=== PATIENT | female | born 1965 | race Caucasian/White ===

== ENCOUNTER 2020-02-13 09:34 | Outpatient (CLI) | payer BC, SELFPAY ==
[2020-02-13 10:01] LABS: Basophils % 0.4 %; Eosinophils # 0.1 10^3/uL (0.0-0.8); Eosinophils % 0.7 %; Hemoglobin 13.2 g/dL (11.5-15.3); Lymphocytes # 2.2 10^3/uL (0.8-4.8); Lymphocytes % 26.1 %; Mean Corpuscular HGB Conc 33.8 g/dL (30.0-36.0); Mean Corpuscular Hemoglobin 32.3 pg (28.0-34.0); Mean Corpuscular Volume 95.4 fL (81-99); Mean Platelet Volume 10.8 fL (7.4-10.4); Monocytes # 0.7 10^3/uL (0.2-0.9); Neutrophils # 5.5 10^3/uL (1.8-7.7); Neutrophils % 64.6 %; Nucleated Red Blood Cells % 0 %; Platelet Count 231 10^3/cmm (130-400); Red Blood Count 4.09 10^6/uL (4.1-5.3); Red Cell Distribution Width 11.8 % (12.1-15.1); White Blood Count 8.5 10^3/uL (4.0-10.0)
[2020-02-13 10:18] LABS: Alanine Aminotransferase 47 U/L (0-33); Albumin Level 4.4 g/dL (3.5-5.2); Alkaline Phosphatase 335 IU/L (35-105); Anion Gap 16.1 (5-19); Aspartate Amino Transferase 27 U/L (0-32); Blood Urea Nitrogen 8 mg/dL (6-20); Calcium 9.7 mg/dL (8.5-10.5); Carbon Dioxide 27 mmol/L (22-29); Chloride 105 mmol/L (98-107); Globulin 2.2 g/dL (1.3-4.6); Glucose 101 mg/dL (65-115); Osmolality Calculated 296 mOsm/kg (285-295); Potassium 3.1 mmol/L (3.5-5.1); Sodium 145 mmol/L (136-145); Total Bilirubin 0.5 mg/dL (0.15-1.2); Total Protein 6.6 g/dL (6.6-8.7)
--- NOTE | 2020-02-13 10:35 | CT_ITS ---
WS: [id number] CT ABDOMEN AND PELVIS NONCONTRAST HISTORY: RLQ PAIN Unable to start IV for IV contrast. TECHNIQUE: Imaging performed through the abdomen and pelvis. Coronal and sagittal reformats are submi tted. All CT scans at [facility] use at least one of these dose optimization techniques: automated exposure control; mA and/or kV adjustment per patient size (includes targeted exams where d ose is matched to clinical indication); or iterative reconstruction. DLP: 436.91 mGy.cm COMPARISON: 12/27/2015 Lower thorax: Emphysematous changes at the lung bases. Mild cardiomegaly. No hiatal hernia. Liver: Mildly enlarged with hepatic steatosis. Rosalinda's lobe. Gallbladder: Prior cholecystectomy. Pancreas: Normal. Spleen: Normal. Adrenal glands: Normal. Right kidney: Normal size with no stones, masses or atrophy. Left kidney: Extrarenal pelvis. No renal obstruction or calcifications. Abdominal aorta and IVC are unremarkable. No free fluid, intraperitoneal air or significant lymphadenopathy. GI tract: The appendix is visualized and is redundant. No wall thickening and there are still foci of air within the appendix. Mild constipation. No evidence for diverticulitis or colitis. Abdominal wall: Intact. Pelvis: Well-distended urinary bladder. Osseous structures: Unremarkable. CT/CT abdomen pelvis wo con [id number] IMPRESSION: 1. No evidence for appendicitis. 2. Status post cholecystectomy. 3. Hepatomegaly with Rosalinda's lobe and hepatic steatosis. 4. No renal stone or obstruction. 5. No free fluid.
== END 2020-02-13 09:35 | disposition home or self-care (01) ==
PROVIDERS: Family Provider Family Medicine; PCP Family Medicine; Visit Provider Nurse Practitioner Family
DX: R10.31 Right lower quadrant pain (principal); R16.0 Hepatomegaly, not elsewhere classified; Q44.7 Other congenital malformations of liver; K76.0 Fatty (change of) liver, not elsewhere classified
CPT/HCPCS: 36415; 74176; 80053; 85025

== ENCOUNTER 2020-02-20 07:52 | Outpatient (CLI) | payer BC, SELFPAY ==
--- NOTE | 2020-02-20 08:04 | MR_ITS ---
WS: [id number] MRCP (MAGNETIC RESONANCE CHOLANGIOPANCREATOGRAPHY) HISTORY: ENLARGED LIVER, ELEVATED ALKALINE GAMMA GLUTAMYL TRANSFERASE COMPARISON: 02/13/2020 TECHNIQUE: Multiple sequences are performed to evaluate the intra and extrahepatic ducts. Status post cholecystectomy. Common bile duct is normal size. Common bile duct measures [address] The cystic duct is also normal. No intrahepatic duct dilatation. Portal vein is patent. Liver is moderately enlarged. The liver is elongated with a thin Rosalinda's lobe extending towards the iliac cr est. No hepatic mass. There is no ascites within the abdomen. The adrenal glands, spleen and kidneys are negative. Chronic emphysematous changes with scarring noted in the RIGHT lower lung field. MR/MR MRCP [id number] IMPRESSION: 1. Prior cholecystectomy. 2. Normal common bile duct. 3. Elongated liver with Rosalinda's lobe. 4. No ascites.
== END 2020-02-20 07:53 | disposition home or self-care (01) ==
LOC: RADWPI 07:59
PROVIDERS: Family Provider Family Medicine; PCP Family Medicine; Visit Provider Nurse Practitioner Family
DX: R16.0 Hepatomegaly, not elsewhere classified (principal); R74.8 Abnormal levels of other serum enzymes; R74.0 Nonspecific elevation of levels of transaminase and lactic acid dehydrogenase [LDH]; Q44.7 Other congenital malformations of liver
CPT/HCPCS: 74181

== ENCOUNTER 2020-04-16 14:37 | Outpatient (CLI) | payer BC, SELFPAY ==
--- NOTE | 2020-04-16 14:41 | MM_ITS ---
WS: [id number] BILATERAL DIGITAL SCREENING MAMMOGRAM WITH CAD CLINICAL INFORMATION: SCREENING HISTORY: Screening mammogram. No current complaints. COMPARISON: November 06, 2017 TECHNIQUE: Bilateral CC and MLO. FINDINGS: The breast are composed of extremely dense tissue, which can limit the detection of small underlying mass lesions. No suspicious focal mass, asymmetry, calcifications, or architectural distortion. No ev idence of malignancy. Benign punctate and lucent centered calcifications left breast. MM/[place] [id number] IMPRESSION: BI-RADS: 2-Benign FOLLOW UP: 1 Year Follow-up Recommend return to annual screening mammography.
== END 2020-04-16 14:38 | disposition home or self-care (01) ==
LOC: RADSHAW 14:40
PROVIDERS: PCP Family Medicine; Visit Provider Family Medicine
DX: Z12.31 Encounter for screening mammogram for malignant neoplasm of breast (principal)
CPT/HCPCS: 77067

== ENCOUNTER 2020-04-19 13:45 | Outpatient (CLI) | payer BC, SELFPAY ==
--- NOTE | 2020-04-19 13:53 | XR_ITS ---
WS: [id number] SCREENING DEXA SCAN [email or web address] CLINICAL INFORMATION: OSTEOPOROSIS COMPARISON: FINDINGS: The L1-L4 bone mineral density measures 0.808 g/cm2. This corresponds to a T score score of -3.1 and Z score of -1.9. Left femoral neck bone mineral density measures 0.815 g/cm2. This corresponds to a T score of -1.5 an d Z score of -0.5. Right femoral neck bone mineral density measures 0.841 g/cm2. This corresponds to a T score -1.3of an d Z score of -0.3. Mean femoral neck bone mineral density measures 0.828 g/cm2. This corresponds to a T score of -1.4 an d Z score of -0.4. XR/XR DEXA axial skeleton* [id number] IMPRESSION: Osteoporosis in the lumbar spine. Osteopenia in the femoral necks. Patient's FRAX calculated 10 year probability for major osteoporotic fracture i s 12.1 % and osteoporotic hip fracture is 3.0%. Bone mineral density lumbar spine has decreased -7.0% and -1.7% in the femoral necks since 2017
--- NOTE | 2020-04-19 13:53 | XR_ITS ---
WS: [id number] THORACIC SPINE TECHNIQUE: 3 views of the thoracic spine CLINICAL INFORMATION: MID BACK PAIN COMPARISON: None. FINDINGS: Mild thoracic curve convex right. Evidence of prior vertebroplasty changes in the upper thoracic spin e at T5 with methacrylate extending into the prevertebral soft tissues. Anterior wedging at T5. Mild chronic appearing appearing anterior wedging in the mid thoracic spine at T8, T9 and T10. Disc space narrowing at the cervical spine at C5-6 and C6-7 XR/XR thoracic spine 3V* [id number] IMPRESSION: 1. Mild thoracic curve convex right. No acute appearing compression fractures. 2. Prior vertebroplasty changes at T5. 3. Chronic appearing anterior wedging in the mid thoracic spine at T8, T9, and T10. 4. Disc space narrowing cervical spine at C5-C6 and C6-C7.
== END 2020-04-19 13:46 | disposition home or self-care (01) ==
PROVIDERS: Family Provider Family Medicine; PCP Family Medicine; Visit Provider Family Medicine
DX: M81.0 Age-related osteoporosis without current pathological fracture (principal); M54.89 Other dorsalgia; M48.54XA Collapsed vertebra, not elsewhere classified, thoracic region, initial encounter for fracture
CPT/HCPCS: 72072; 77080

== ENCOUNTER 2020-05-12 07:49 | Emergency (ER) | payer OTHER, SELFPAY ==
[2020-05-12 07:52] VITALS: BMI 19.7
[2020-05-12 07:56] VITALS: BP 187/101; PULSE 58; RESP 16; TEMP 36.5; O2SAT 100
--- NOTE | 2020-05-12 08:05 | W.ED.BACK ---
HPI - Back Pain/Injury General: Chief Complaint: Back Pain/Injury Stated Complaint: BACK PAIN POSS WC Time Seen by Provider: 05/12/20 07:54 History of Present Illness: HPI Narrative: Was at work today and picked up a case of energy drinks which was heavy and she felt pain to her low back that rating down the left side now. Does have a history of chronic back problems. MD elicited complaint: back pain Pertinent past history: prior back pain Onset (ago): minute(s) Timing: constant Severity: moderate Similar Symptoms Previously: Yes Quality: burning Location: lumbar spine Radiation: left upper leg Exacerbating factors: movement and walking Relieving factors: immobilization Context: while lifting and turning/twisting Associated symptoms: Reports no associated symptoms; Deny abdominal pain, chills, fever(s), nausea or vomiting Work related injury: Yes Review of Systems Const: Denies: fever(s), chills or body aches Eyes: Denies: change in vision or blurry vision ENMT: Denies: throat pain or nasal congestion Card: Denies: chest pain or dyspnea on exertion Resp: Denies: dyspnea, productive cough or non-productive cough GI: Denies: abdominal pain, nausea or vomiting Musc: Reports: back pain; Denies: extremity pain Skin/Breast: Denies: rash Neuro: Denies: headache(s) Psych: Denies: anxiety or depression Sg/Lymph: Denies: easy bruising PFSH ED PFSH: Medical History (Updated 05/12/20 @ 08:10 by DON Ruiz) 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 Surgical History (Updated 05/07/20 @ 11:11 by Niya Herrera APRN) History of breast biopsy History of delivery History of cholecystectomy History of lung surgery History of thyroidectomy History of tonsillectomy Hx of removal of ovary Family History Mother Alcoholism Lung cancer Father Alcoholism Throat cancer Brother Alcoholism Family/Other Thyroid disease Hypertension Hyperlipidemia Social History Smoking and tobacco status: current every day smoker Alcohol intake: current Alcohol intake frequency: holidays/special occasions only Household members: spouse and children Marital status: Current occupational status: employed 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 [employer] History of recent travel: No Physical Exam Const: COMMON NORMALS: no acute distress, average body habitus and patient oriented x3 HENMT: COMMON NORMALS: normocephalic HEAD & SCALP: normal to inspection and normocephalic FACE & SINUS: normal facial exam Eye: COMMON NORMALS: conjunctivae normal GENERAL EYE: appearance normal, both eyes and all related structures CONJUNCTIVA: Yes conjunctivae normal Neck/C-Spine: COMMON NORMALS: no JVD Chest: COMMONS NORMALS: normal inspection of the chest Resp: COMMON NORMALS: normal respiratory effort and clear to auscultation bilaterally AUSCULTATION: clear to auscultation bilaterally Cardio: COMMON NORMALS: no JVD, regular rate and regular rhythm RATE: regular rate RHYTHM: regular rhythm GI: COMMON NORMALS: Normal to inspection, nondistended, normoactive bowel sounds present Back/Pelvis: LUMBAR SPINE/LOWER BACK: Yes pain with ROM, No lumbar spinal tenderness, No paraspinal muscle spasm and Yes straight leg raise positive left Extremity: COMMON NORMALS: normal to inspection and full ROM Neuro: COMMON NORMALS: patient oriented x3 Course Vital Signs: Vital signs: Vital Signs Temperature 97.7 F 05/12/20 07:56 Pulse Rate 53 L 05/12/20 08:24 Respiratory Rate 17 05/12/20 08:24 Blood Pressure 177/104 05/12/20 08:24 Pulse Oximetry 99 05/12/20 08:24 Discharge Plan Discharge Patient Disposition: Home, Self-Care Clinical Impression: Lumbar radiculopathy Condition: Stable Prescriptions: New prednisone 10 mg tablet 10 mg PO DAILY Qty: 14 RF: 0 cyclobenzaprine 5 mg tablet 5 mg PO TID PRN (Reason: muscle spasm) Qty: 20 RF: 0 No Action cbd gummies ring PO RF: 0 levothyroxine 112 mcg capsule 112 mcg PO DAILY RF: 0 ropinirole 0.5 mg tablet 0.5 mg PO DAILY RF: 0 trazodone 150 mg tablet 150 mg PO DAILY RF: 0 hydroxyzine HCl 25 mg tablet 25 mg PO QID PRNRF: 0 triamcinolone acetonide 0.1 % cream 1 applic TOPICAL TID PRNRF: 0 losartan 25 mg tablet 25 mg PO DAILY RF: 0 atorvastatin 20 mg tablet 20 mg PO DAILY RF: 0 multivitamin Tablet 1 tab PO DAILY RF: 0 cholecalciferol (vitamin D3) 25 mcg (1,000 unit) capsule 25 mcg PO DAILY RF: 0 black elderberry capsule PO RF: 0 omega-3 fatty acids [Fish Oil Concentrate] 1,000 mg capsule 1,000 mg PO DAILY RF: 0 Otezla 30 mg tablet 30 mg PO BID RF: 0 Discharge Orders: Discharge Order (Routine); Ordered 05/12/20 Ordered By: Cornel Murphy Referrals: Olivia Hogan MD [Primary Care Provider] - Discharge Diet: Usual diet Discharge Activity: Limit activity as instructed Patient Instructions: Lumbar Radiculopathy (ED) Activity Restrictions/Additional Instructions: Follow-up with medical provider as directed. Take medications as prescribed. Return to the ER or your medical provider if condition worsens. Please read and understand discharge instructions. If any questions ask please. Follow-up work comp doc as directed. Apply ice to back as needed. Heavy lifting for next 4 weeks. Weight restrictions at 10 pounds x 4 weeks. Cannot stand longer than 15 minutes. Stand Alone Forms: Work/School Release Discharge Date/Time: 05/12/20 08:25 Coding Level of Care Code ED Optical Glass Inspector for Chg Fwd Exam Comprehensive
[2020-05-12] MEDS: methylPREDNISolone (DEPO) 80 MG/ML INJ 1 mL IM (08:11)
[2020-05-12 08:13] VITALS: BP 177/104; PULSE 46; RESP 16; O2SAT 99
[2020-05-12 08:24] VITALS: BP 177/104; PULSE 53; RESP 17; O2SAT 99
== END 2020-05-12 08:25 | disposition home or self-care (01) ==
PROVIDERS: Emergency Provider Nurse Practitioner Family; PCP Family Medicine
DX: M54.16 Radiculopathy, lumbar region (principal); F17.210 Nicotine dependence, cigarettes, uncomplicated
CPT/HCPCS: 12345; 96372; 99282; 99283; J1040

== ENCOUNTER 2020-05-24 07:48 | Outpatient (CLI) | payer BC, SELFPAY ==
--- NOTE | 2020-05-24 08:00 | XR_ITS ---
WS: [id number] LATERAL CERVICAL SPINE: 3 view. Lateral radiographs are performed in upright neutral, flexion and extension to the patient's toleranc e. HISTORY: Neck pain COMPARISON: None available. Straightening of the normal cervical lordosis. 2 mm anterolisthesis of C4. Mild disc space narrowing at C5-6 and C6-7 with endplate osteophytes. No fractures. With flexion the anterolisthesis of C4 minimally increases to 2.4 mm. Returns to normal alignment dur ing extension. XR/XR cervical spine fl/ex [id number] IMPRESSION: 1. Straightening of the normal cervical lordosis. 2. Minimal anterolisthesis of C4. Returns to normal alignment during extension . Very small mild instability. 3. Mild spondylosis from C5 to C7.
--- NOTE | 2020-05-24 08:45 | MR_ITS ---
WS: [id number] MRI THORACIC SPINE noncontrast. HISTORY: Thoracic and lumbar pain. LEFT upper extremity pain. COMPARISON: 03/01/2015 TECHNIQUE: Multiplanar sequences are performed in sagittal and axial planes. Stable T5 10 percent anterior compression fracture with vertebroplasty. Vertebroplasty cement is in t he anterior vertebral body and partially extruded and abuts the agnes and esophagus. Similar to the prior study. No additional fractures. No marrow signal abnormalities. Disc spaces are preserved. Sign al within the cord is normal. Conus tapers normally and ends at L1-2. T1-2: Normal. T2-3: Normal. T3-4: Normal. T4-5: Normal. T5-6: Normal. T6-7: Normal. T7-8: Normal. T8-9: Normal. T9-10: Normal. T10-11: Normal. T11-12: Normal. Paravertebral soft tissues are normal. MR/MR thoracic spin wo con* [id number] IMPRESSION: 1. Stable 10% anterior compression fracture of T5 with vertebroplasty. No inte rval change. 2. No acute fractures. No significant stenosis.
--- NOTE | 2020-05-24 09:30 | MR_ITS ---
WS: [id number] MRI CERVICAL SPINE HISTORY: M50.020 Cervical disc disorder with myelopathy, mid-cervi... COMPARISON: None available. Straightening of the normal cervical lordosis. Very slight reversal of C5 by less than 2 mm. No marro w edema or fracture. Signal within the cervical cord is normal. Fluidlike signal intensity in the central occipital region consistent with benign skull lesion stable since 2015. Craniocervical junction, C1 and C2 relationship, odontoid process and soft tissues are normal. C2-C3: Normal. C3-C4: Normal. C4-C5: Normal. C5-C6: Small central disc protrusion with near contact on the ventral thecal sac. Small osteophytic r idging. No significant stenosis. Very mild narrowing of the RIGHT foramen. C6-C7: Small central disc protrusion with vertebral body osteophytes. No significant stenosis. Very m ild bilateral foraminal narrowing. C7-T1: Normal. Paraspinal soft tissue are normal. MR/MR cervical spin wo con* [id number] IMPRESSION: 1. Straightening of the normal cervical lordosis. 2. Mild degenerative disc disease at C5-6 and C6-7. 3. Small central disc protrusion at C5-6 with near cord contact. No significan t stenosis. 4. Very mild RIGHT foraminal narrowing at C5-6 and bilaterally at C6-7 predomi nantly due to osteophytes.
== END 2020-05-24 07:49 | disposition home or self-care (01) ==
LOC: RADWPI 07:52
PROVIDERS: Family Provider Family Medicine; PCP Family Medicine; Visit Provider Licensed Practical Nurse
DX: M50.020 Cervical disc disorder with myelopathy, mid-cervical region, unspecified level (principal); M51.9 Unspecified thoracic, thoracolumbar and lumbosacral intervertebral disc disorder; M50.323 Other cervical disc degeneration at C6-C7 level; M50.222 Other cervical disc displacement at C5-C6 level; M25.78 Osteophyte, vertebrae; M48.54XA Collapsed vertebra, not elsewhere classified, thoracic region, initial encounter for fracture; X58.XXXA Exposure to other specified factors, initial encounter; M47.812 Spondylosis without myelopathy or radiculopathy, cervical region
CPT/HCPCS: 72040; 72141; 72146

== ENCOUNTER 2020-06-29 06:00 | Outpatient (RCR) | payer BC, SELFPAY | END 2020-07-28 23:59 | disposition home or self-care (01) | LOC: TPT 06:00 | PROVIDERS: Referring Provider Licensed Practical Nurse; Visit Provider Licensed Practical Nurse | DX: M50.020 Cervical disc disorder with myelopathy, mid-cervical region, unspecified level (principal); M51.9 Unspecified thoracic, thoracolumbar and lumbosacral intervertebral disc disorder | CPT/HCPCS: 97161 ==

== ENCOUNTER → 2020-07-01 14:32 | Outpatient (BNVA) | payer BC, SELFPAY | PROVIDERS: Family Provider Family Medicine; PCP Family Medicine; Referring Provider Nurse Practitioner Family; Visit Provider Internal Medicine | DX: M81.0 Age-related osteoporosis without current pathological fracture (principal); E03.9 Hypothyroidism, unspecified | CPT/HCPCS: 99204 ==

== ENCOUNTER → 2020-08-12 15:19 | Outpatient (BNVA) | payer BC, SELFPAY | PROVIDERS: Visit Provider Internal Medicine | DX: E03.9 Hypothyroidism, unspecified (principal); E83.42 Hypomagnesemia; E87.6 Hypokalemia; M81.0 Age-related osteoporosis without current pathological fracture | CPT/HCPCS: 99215 ==

== ENCOUNTER 2020-08-12 15:56 | Outpatient (CLI) | payer BC, SELFPAY ==
[2020-08-12 17:09] LABS: Free T4 Free Thyroxine 1.67 ng/dL (0.82-1.77); Phosphorus 3.5 mg/dL (2.5-4.5); Thyroid Stimulating Hormone 4.15 uIU/mL (0.27-4.20)
[2020-08-12 18:12] LABS: 25 Hydroxy Vitamin D 45 ng/mL (30-100)
== END 2020-08-12 15:57 | disposition home or self-care (01) ==
LOC: LAB 16:01
PROVIDERS: PCP Nurse Practitioner Family; Visit Provider Internal Medicine
DX: M81.0 Age-related osteoporosis without current pathological fracture (principal); E03.9 Hypothyroidism, unspecified
CPT/HCPCS: 36415; 82306; 82310; 83970; 84075; 84080; 84100; 84439; 84443

== ENCOUNTER 2021-08-22 08:28 | Outpatient (CLI) | payer OTHER, SELFPAY ==
--- NOTE | 2021-08-22 08:35 | XR_ITS ---
WS: [id number] Exam: XR ankle LT min 3V* [id number] Date/Time of Exam: 08/22/2021 8:45 AM Reason For Exam: LEFT ANKLE JOINT PAIN Findings: Multiple views of the ankle reveal no fracture or displacements of bone. No soft tissue swelling is present. There are no periosteal reactions noted. The talus and calcaneus are in adequate position. The joint space is smooth and equidistant. XR/XR ankle LT min 3V* [id number] IMPRESSION: Negative left ankle.
--- NOTE | 2021-08-22 08:35 | XR_ITS ---
WS: [id number] Exam: XR foot LT min 3V* [id number] Date/Time of Exam: 08/22/2021 8:45 AM Reason For Exam: LEFT FOOT JOINT PAIN Findings: The foot was examined in multiple views and reveals no fractures or displacements of bone. No bony a nomalies are noted. The bony elements are in adequate alignment. The joint spaces are smooth and eq uidistant. XR/XR foot LT min 3V* [id number] IMPRESSION: Negative left foot.
== END 2021-08-22 08:29 | disposition home or self-care (01) ==
PROVIDERS: PCP Nurse Practitioner Family; Visit Provider Nurse Practitioner Family
DX: M79.672 Pain in left foot (principal); M25.572 Pain in left ankle and joints of left foot
CPT/HCPCS: 73610; 73630

== ENCOUNTER 2021-08-22 10:03 | Outpatient (CLI) | payer OTHER, SELFPAY ==
--- NOTE | 2021-08-22 10:07 | MM_ITS ---
WS: [id number] BILATERAL DIGITAL DIAGNOSTIC MAMMOGRAM MAMMOGRAPHY WITH CAD CLINICAL INFORMATION: LUIS BREAST PAIN;DENSITY 6 OCLOCK BILATERALLY. LEFT BREAST LUMP. COMPARISON: April 16, 2020 and TECHNIQUE: Bilateral CC, MLO, and ML views. FINDINGS: The breasts are composed of heterogeneous fibroglandular density, which can limit the detection of sm all underlying mass lesions. Dystrophic calcifications bilaterally. Ovoid asymmetric density lower ou ter right breast measuring 8 mm. Ultrasound is pending. Palpable marker just inferior to the areola left breast. No definite underlying mammographic abnormal ities in this area. Ultrasound is pending. ULTRASOUND BREAST BILATERAL TECHNIQUE: Ultrasound bilateral breast focused area of concern. CLINICAL INFORMATION: LUIS BREAST PAIN;DENSITY 6 OCLOCK BILATERALLY FINDINGS: Ultrasound outer right breast demonstrates normal underlying dense parenchymal tissue. Incidental lym ph node at the 9:00 position measuring 1.2 x 1.1 cm with a fatty hilum. No suspicious abnormalities r ight breast. Ultrasound left breast 6:00 position near the areola. Mild ductal ectasia. No cystic or solid lesions . No lesions to target for biopsy. MM/[place] [id number] IMPRESSION: BI-RADS: 2-Benign FOLLOW UP: 1 Year Follow-up Recommend return to annual screening mammography.
== END 2021-08-22 10:04 | disposition home or self-care (01) ==
LOC: RADSHAW 10:06
PROVIDERS: PCP Nurse Practitioner Family; Visit Provider Nurse Practitioner Family
DX: N60.42 Mammary duct ectasia of left breast (principal); N64.4 Mastodynia
CPT/HCPCS: 76642; 77066

== ENCOUNTER → 2021-10-26 15:46 | Outpatient (BNVA) | payer OTHER, SELFPAY | PROVIDERS: PCP Nurse Practitioner Family; Visit Provider Obstetrics & Gynecology | DX: R10.31 Right lower quadrant pain (principal) | CPT/HCPCS: 76830 ==

== ENCOUNTER 2021-12-04 09:37 | Emergency (ER) | payer OTHER, SELFPAY ==
[2021-12-04] VITALS (8 sets, daily range): BP systolic 108–136; BP diastolic 66–85; PULSE 50–77; RESP 14–18; TEMP 36.8; O2SAT 92–95; BMI 24.5
--- NOTE | 2021-12-04 10:03 | CTR_ITS ---
PROCEDURE INFORMATION: Exam: CT Abdomen And Pelvis Without Contrast Exam date and time: 12/04/2021 10:03 AM Age: 56 years old Clinical indication: Other: Right flank pain; Prior surgery; Surgery date: 6+ months; Surgery type: Gb, ovarian TECHNIQUE: Imaging protocol: Computed tomography of the abdomen and pelvis without contrast. Total images: 216 Radiation optimization: All CT scans at this facility use at least one of these dose optimization techniques: automated exposure control; mA and/or kV adjustment per patient size (includes targeted exams where dose is matched to clinical indication); or iterative reconstruction. COMPARISON: MR MRCP [id number] 02/20/2020 8:04 AM RADIATION DOSE METRICS: Total DLP (mGy-cm): 987.13 FINDINGS: Lungs: Prominent interstitial and ground-glass opacities noted at the lung bases right greater than left felt to represent combination of scarring/fibrosis and edema, atelectasis, and or pneumonia. Liver: Normal. No mass. Gallbladder and bile ducts: Prior cholecystectomy noted. Pancreas: Normal. No ductal dilation. Spleen: Normal. No splenomegaly. Adrenal glands: Normal. No mass. Kidneys and ureters: Normal. No hydronephrosis. Stomach and bowel: Unremarkable. No obstruction. No mucosal thickening. Appendix: No evidence of appendicitis. Intraperitoneal space: Unremarkable. No free air. No significant fluid collection. Vasculature: Incidental phleboliths noted. Lymph nodes: Unremarkable. No enlarged lymph nodes. Urinary bladder: Unremarkable as visualized. Reproductive: Unremarkable as visualized. Bones/joints: Unremarkable. No acute fracture. Soft tissues: Unremarkable. CT/CT abdomen pelvis con [id number] IMPRESSION: 1. Prominent interstitial and ground-glass opacities noted at the lung bases right greater than left felt to represent combination of scarring/fibrosis and edema, atelectasis, and or pneumonia. 2. No acute intra-abdominal pathology.
--- NOTE | 2021-12-04 10:04 | W.ED.ABDPA2 ---
HPI - Abdominal Pain General: Chief Complaint: Abdominal Pain Stated Complaint: fever Time Seen by Provider: 12/04/21 09:53 History of Present Illness: 56-year-old female presents with right flank pain. This started 2 days ago. Describes it as achy. Does not radiate. States that she is previously had a cholecystectomy. Reports fever up to 103 at home. Denies any chest pain or shortness of breath. Denies any dysuria or pelvic discharge or lower abdominal pain. Denies nausea vomiting diarrhea or constipation. Review of Systems Narrative: - CONSTITUTIONAL: Denies weight loss, fever and chills. - HEENT: Denies changes in vision and hearing. - RESPIRATORY: Denies SOB and cough. - CV: Denies palpitations and CP. - GI: Denies abdominal pain, nausea, vomiting and diarrhea. - : Denies dysuria and urinary frequency. - MSK: Denies myalgia and joint pain. - SKIN: Denies rash and pruritus. - NEUROLOGICAL: Denies headache, weakness, numbness and syncope. - PSYCHIATRIC: Denies suicidal ideation PFSH ED PFSH: Medical History Cervical disc disorder with myelopathy of mid-cervical region Elevated alkaline phosphatase level Elevated serum gamma-glutamyl transferase level Endometriosis Enlarged liver Gitelman syndrome High gamma glutamyl transferase (GGT) Hypokalemia Hypothyroidism Osteoporosis Thoracic disc disease Surgical History History of breast biopsy History of delivery History of cholecystectomy History of lung surgery History of thyroidectomy History of tonsillectomy Hx of removal of ovary Family History Mother Alcoholism Lung cancer Throat cancer Father Alcoholism Throat cancer Lung cancer Brother Alcoholism Family/Other Thyroid disease Cancer Paternal Uncle--brain Sister Breast cancer Sister Breast cancer Other Hypertension Denies family history of Diabetes CAD (coronary artery disease) Clotting disorder Hyperlipidemia Chronic kidney disease (CKD) Bleeding disorder Stroke Physical Exam Narrative: EXAM NARRATIVE: - GENERAL: Alert and oriented x 3. No acute distress. Well-nourished. - EYES: EOMI. Anicteric. - HENT: Atraumatic, no C-spine tenderness. Moist mucous membranes. No scleral icterus. No cervical lymphadenopathy. - LUNGS: Clear to auscultation bilaterally. No accessory muscle use. Equal lung sounds bilaterally. No respiratory distress. - CARDIOVASCULAR: Regular rate and rhythm. No murmur. No JVD. - ABDOMEN: Soft, non-tender and non-distended. Right-sided CVA tenderness, no rebound or guarding, negative Camejo sign. No palpable masses. - EXTREMITIES: No edema. Non-tender. - SKIN: No rashes or lesions. Warm. - NEUROLOGIC: No meningismus or focal neurological deficits. CN II-XII grossly intact. - PSYCHIATRIC: Cooperative. Appropriate mood and affect. Course Vital Signs: Vital signs: Vital Signs Temperature 98.2 F 12/04/21 09:41 Pulse Rate 53 L 12/04/21 13:48 Respiratory Rate 14 12/04/21 13:48 Blood Pressure 119/83 12/04/21 13:48 Pulse Oximetry 93 12/04/21 13:48 MDM - Abdominal Pain Medical Decision Making 56-year-old female presents with right flank pain. Does not have any right upper quadrant anterior abdominal tenderness and has had previous cholecystectomy. CT scan does not reveal any sign of kidney stone or other acute abnormality. Does have some groundglass opacities in the lungs but denies any chest pain or shortness of breath. X-ray reveals stable granulomatous disease but no acute changes. There is no sign of pneumonia. Otherwise lab work unremarkable. Urinalysis is a few white blood cells and will be sent to culture but remainder of lab work is unremarkable and there is no sign of UTI or hematuria. It is possible that she passed a stone earlier but there is no stone apparent on CT at the moment. Upon reevaluation she is pain-free. At this time I believe patient would be safe for discharge and outpatient follow-up. Return precautions provided. Plan was reviewed with the patient who expressed understanding. Questions answered. Patient will follow up with PCP. Patient discharged in stable condition. Lab Data : 12/04/21 10:28 12/04/21 10:28 Labs/Radiology: Radiology Impressions Abdomen/Pelvis CT 12/04/21 10:03 IMPRESSION: 1. Prominent interstitial and ground-glass opacities noted at the lung bases right greater than left felt to represent combination of scarring/fibrosis and edema, atelectasis, and or pneumonia. 2. No acute intra-abdominal pathology. Chest X-Ray 12/04/21 11:28 IMPRESSION: Stable COPD . Laboratory Results WBC 3.9 10^3/uL (4.0-10.0) L 12/04/21 10:28 RBC 4.12 10^6/uL (4.1-5.3) 12/04/21 10:28 Hgb 13.3 g/dL (11.5-15.3) 12/04/21 10:28 Hct 39.6 % (37.0-47.0) 12/04/21 10:28 MCV 96.1 fl (81-99) 12/04/21 10:28 MCH 32.3 pg (28.0-34.0) 12/04/21 10:28 MCHC 33.6 g/dL (30.0-36.0) 12/04/21 10:28 RDW 11.9 % (12.1-15.1) L 12/04/21 10:28 Plt Count 124 10^3/cmm (130-400) L 12/04/21 10: MPV 10.8 fL (7.4-10.4) H 12/04/21 10:28 Neut % (Auto) 54.1 % 12/04/21 10:28 Lymph % (Auto) 29.8 % 12/04/21 10:28 [place] % (Auto) 14.8 % 12/04/21 10:28 Eos % (Auto) 0.5 % 12/04/21 10:28 Baso % (Auto) 0.3 % 12/04/21 10:28 Neut # (Auto) 2.13 10^3/uL (1.8-7.7) 12/04/21 10:28 Lymph # (Auto) 1.2 10^3/uL (0.8-4.8) 12/04/21 10:28 [place] # (Auto) 0.6 10^3/uL (0.2-0.9) 12/04/21 10:28 Eos # (Auto) 0.0 10^3/uL (0.0-0.8) 12/04/21 10:28 Baso # (Auto) 0.0 10^3/uL (0.0-0.1) 12/04/21 10:28 Nucleated RBC % (auto) 0 % 12/04/21 10:28 Nucleated RBCs # 0.0 /100WBC 12/04/21 10:28 Sodium 139 mmol/L (136-145) 12/04/21 10:28 Potassium 3.6 mmol/L (3.5-5.1) 12/04/21 10:28 Chloride 109 mmol/L (98-107) H 12/04/21 10:28 Carbon Dioxide 19 mmol/L (22-29) L 12/04/21 10:28 Anion Gap 14.6 (5-19) 12/04/21 10:28 BUN 10 mg/dL (6-20) 12/04/21 10:28 Creatinine 0.6 mg/dL (0.5-0.9) 12/04/21 10:28 GFR Calculation 103.8 mL/min (90-130) 12/04/21 10:28 Glucose 86 mg/dL (65-115) 12/04/21 10:28 Calculated Osmolality 286 mOsm/kg (285-295) 12/04/21 10:28 Calcium 8.9 mg/dL (8.5-10.5) 12/04/21 10:28 Total Bilirubin 0.3 mg/dL (0.15-1.2) 12/04/21 10:28 AST 26 U/L (0-32) 12/04/21 10:28 ALT 25 U/L (0-33) 12/04/21 10:28 Alkaline Phosphatase 85 IU/L (35-105) 12/04/21 10:28 Total Protein 6.1 g/dL (6.6-8.7) L 12/04/21 10:28 Albumin 3.8 g/dL (3.5-5.2) 12/04/21 10:28 Globulin 2.3 g/dL (1.3-4.6) 12/04/21 10:28 Lipase 16 U/L (13-60) 12/04/21 10:28 Urine Color Yellow (Yellow) 12/04/21 13:02 Urine Appearance Sl hazy (CLEAR) 12/04/21 13:02 Urine pH 5 (5-7) 12/04/21 13:02 Ur Specific Mc[place] 1.010 (1.005-1.030) 12/04/21 13:02 Urine Protein Neg (Negative) 12/04/21 13:02 Urine Glucose (UA) Norm (Normal) 12/04/21 13:02 Urine Ketones Negative (Negative) 12/04/21 13:02 Urine Blood Neg (Negative) 12/04/21 13:02 Urine Nitrate Negative (Negative) 12/04/21 13:02 Urine Bilirubin Neg (Negative) 12/04/21 13:02 Urine Urobilinogen Norm mg/dL (Negative) 12/04/21 13:02 Ur Leukocyte Esterase Negative (Negative) 12/04/21 13:02 Urine RBC None /hpf (0-2) 12/04/21 13:02 Urine WBC 0-4 /hpf (0-5) H 12/04/21 13:02 Ur Squamous Epith Cells 10-15 /hpf (0-5) H 12/04/21 13:02 Amorphous Sediment Not Reportable 12/04/21 13:02 Urine Bacteria Trace /hpf (NONE) 12/04/21 13:02 Urine Yeast Trace /hpf 12/04/21 13:02 Discharge Plan Discharge Patient Disposition: Home Clinical Impression: Acute flank pain Condition: Stable Prescriptions: No Action spironolactone 25 mg tablet 25 mg PO BID 0RF (DME) blood-glucose meter [Accu-Chek Guide Glucose Meter] Misc See Rx Instructions .ROUTE .MEDSUPPLY Qty: 1 0RF Rx Instructions: As directed (DME) Accu-Chek Guide test strips Strip See Rx Instructions .ROUTE .MEDSUPPLY Qty: 30 0RF Rx Instructions: As directed Taltz Autoinjector 80 mg/mL auto-injector SUBCUT 0RF ropinirole 0.5 mg tablet 0.5 mg PO DAILY 0RF trazodone 150 mg tablet 150 mg PO DAILY 0RF atorvastatin 20 mg tablet 20 mg PO DAILY 0RF multivitamin Tablet 1 tab PO DAILY 0RF alendronate [Fosamax] 70 mg tablet 70 mg PO .once weekly Qty: 12 3RF levothyroxine 100 mcg capsule 100 mcg PO DAILY Qty: 90 3RF Discharge Orders: Discharge ED (Routine); Ordered 12/04/21 Ordered By: Prasad Gibbons Referrals: Alba Cole FNP [Primary Care Provider] - 1-3 days Patient Instructions: Flank Pain (ED), Opioid Safety Coding Level of Care Code ED Supervisor Education for Ayalag Mathew
[2021-12-04] MEDS: fentaNYL 50 mcg/mL INJ 2mL IVP (10:24)
[2021-12-04] MEDS: ondansetron 2 mg/ML SDV 2 mL 4 MG IVP (10:24)
[2021-12-04 10:39] LABS: Basophils % 0.3 %; Eosinophils % 0.5 %; Hematocrit 39.6 % (37.0-47.0); Hemoglobin 13.3 g/dL (11.5-15.3); Lymphocytes # 1.2 10^3/uL (0.8-4.8); Lymphocytes % 29.8 %; Mean Corpuscular HGB Conc 33.6 g/dL (30.0-36.0); Mean Corpuscular Hemoglobin 32.3 pg (28.0-34.0); Mean Corpuscular Volume 96.1 fl (81-99); Mean Platelet Volume 10.8 fL (7.4-10.4); Monocytes # 0.6 10^3/uL (0.2-0.9); Monocytes % 14.8 %; Neutrophils # 2.13 10^3/uL (1.8-7.7); Neutrophils % 54.1 %; Nucleated Red Blood Cells % 0 %; Platelet Count 124 10^3/cmm (130-400); Red Blood Count 4.12 10^6/uL (4.1-5.3); Red Cell Distribution Width 11.9 % (12.1-15.1); White Blood Count 3.9 10^3/uL (4.0-10.0)
[2021-12-04 11:11] LABS: Alanine Aminotransferase 25 U/L (0-33); Albumin Level 3.8 g/dL (3.5-5.2); Alkaline Phosphatase 85 IU/L (35-105); Aspartate Amino Transferase 26 U/L (0-32); Blood Urea Nitrogen 10 mg/dL (6-20); Calcium 8.9 mg/dL (8.5-10.5); Carbon Dioxide 19 mmol/L (22-29); Chloride 109 mmol/L (98-107); Globulin 2.3 g/dL (1.3-4.6); Glomerular Filtration Rate 103.8 mL/min (90-130); Glucose 86 mg/dL (65-115); Lipase 16 U/L (13-60); Osmolality Calculated 286 mOsm/kg (285-295); Sodium 139 mmol/L (136-145); Total Bilirubin 0.3 mg/dL (0.15-1.2); Total Protein 6.1 g/dL (6.6-8.7)
[2021-12-04 11:21] LABS: Anion Gap 14.6 (5-19); Potassium 3.6 mmol/L (3.5-5.1)
--- NOTE | 2021-12-04 11:28 | XRR_ITS ---
PROCEDURE INFORMATION: Exam: XR Chest Exam date and time: 12/04/2021 11:28 AM Age: 56 years old Clinical indication: Shortness of breath; Patient HX: Pna TECHNIQUE: Imaging protocol: XR of the chest. Views: 1 view. COMPARISON: CR Chest 2 views* [id number] 03/27/2015 8:02 AM FINDINGS: Lungs: Stable calcified old granulomatous disease. Stable COPD . Pleural spaces: Unremarkable. No pleural effusion. No pneumothorax. Heart/Mediastinum: Unremarkable. No cardiomegaly. Bones/joints: Unremarkable. XR/XR chest 1V portable [id number] IMPRESSION: Stable COPD .
[2021-12-04 14:03] LABS: Bilirubin Urine Neg (Negative); Blood Urine Neg (Negative); Glucose Urine UA Norm (Normal); Ketones Urine Negative (Negative); Leukocyte Esterase Urine Negative (Negative); Nitrate Urine Negative (Negative); Protein Urine Neg (Negative); Urine Color Yellow (Yellow); Urobilinogen Urine Norm (Negative); pH Urine 5 (5-7)
[2021-12-04 14:05] LABS: Urine Appearance SL Hazy (CLEAR); WBC Urine 0-4 /hpf (0-5)
[2021-12-04 14:06] LABS: Add Urine Culture? No; Bacteria Urine TRACE /hpf
== END 2021-12-04 14:50 | disposition home or self-care (01) ==
PROVIDERS: Emergency Provider Emergency Medicine; PCP Nurse Practitioner Family
DX: R10.9 Unspecified abdominal pain (principal)
CPT/HCPCS: 71045; 74176; 80053; 81001; 83690; 85025; 96374; 96375; 99284; J2405; J3010

== ENCOUNTER 2022-04-25 11:12 | Outpatient (CLI) | payer SELFPAY ==
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
== END 2022-04-25 11:13 | disposition home or self-care (01) ==
LOC: RAD 11:18
PROVIDERS: PCP Nurse Practitioner Family; Visit Provider Nurse Practitioner Family
DX: M53.3 Sacrococcygeal disorders, not elsewhere classified (principal); Z91.89 Other specified personal risk factors, not elsewhere classified
CPT/HCPCS: 72220

== ENCOUNTER → 2023-03-21 08:19 | Outpatient (BNVA) | payer SELFPAY | PROVIDERS: PCP Nurse Practitioner Family; Visit Provider Dermatology | DX: L40.9 Psoriasis, unspecified (principal) | CPT/HCPCS: 86480 ==

== ENCOUNTER 2024-09-18 18:49 | Emergency (ER) | payer SELFPAY ==
[2024-09-18] VITALS (24 sets, daily range): BP systolic 102–148; BP diastolic 63–91; PULSE 60–73; RESP 16–20; TEMP 37.3–37.9; O2SAT 91–97; BMI 20.1
--- NOTE | 2024-09-18 18:58 | XRR_ITS ---
PROCEDURE INFORMATION: Exam: XR Chest Exam date and time: 09/18/2024 7:20 PM Age: 59 years old Clinical indication: Fever TECHNIQUE: Imaging protocol: Radiologic exam of the chest. Views: 1 view. COMPARISON: CR XR chest 1V portable [id number] 12/04/2021 11:44 AM FINDINGS: Lungs: Staple line again seen at right lung apex. No acute findings. Pleural spaces: Unremarkable. No pleural effusion. No pneumothorax. Heart/Mediastinum: Unchanged bulky calcifications at mediastinum likely relating to granulomatous change. Heart size is normal. Bones/joints: No acute findings. XR/XR chest 1V portable [id number] IMPRESSION: No acute findings.
[2024-09-18 19:10] LABS: Basophils % 0.7 %; Eosinophils # 0.1 10^3/uL (0.0-0.8); Eosinophils % 1.4 %; Lymphocytes # 0.5 10^3/uL (0.8-4.8); Lymphocytes % 9.4 %; Mean Corpuscular HGB Conc 33.1 g/dL (30-55); Mean Corpuscular Hemoglobin 30.5 pg (27-33); Mean Corpuscular Volume 92.2 fl (85-98); Monocytes % 17.2 %; Neutrophils # 3.92 10^3/uL (1.8-7.7); Neutrophils % 71.1 %; Nucleated Red Blood Cells % 0 %; Platelet Count 105 10^3/cmm (157-399); Red Blood Count 4.23 10^6/uL (3.85-5.65); White Blood Count 5.52 10^3/uL (3.29-11.43)
--- NOTE | 2024-09-18 19:23 | ED_ITS ---
HPI - Abdominal Pain 2 General: Chief Complaint: Fever Stated Complaint: ABD PAIN Time Seen by Provider: 09/18/24 18:53 History of Present Illness: Patient presents to the ER with just not feeling good all over. Fever chills, nausea vomiting diarrhea all starting today. Patient does report potential coffee-ground emesis with loose brown black-colored stools along with intermittent sharp stabbing right lower quadrant abdominal pain. Related Data Home Medications Medication Instructions Recorded Confirmed atorvastatin 20 mg tablet 20 mg PO DAILY 04/29/20 11/14/21 multivitamin 1 tab PO DAILY 04/29/20 11/14/21 ropinirole 0.5 mg tablet 0.5 mg PO DAILY 04/29/20 11/14/21 trazodone 150 mg tablet 150 mg PO DAILY 04/29/20 11/14/21 spironolactone 25 mg tablet 25 mg PO BID 06/01/20 11/14/21 ixekizumab 80 mg/mL subcutaneous SUBCUT 08/12/20 11/14/21 auto-injector ([employer] Autoinjector) Previous Rx's Medication Instructions Recorded blood sugar diagnostic (Accu-Chek #30 ea 07/01/20 Guide test strips) blood-glucose meter (Accu-Chek #1 ea 07/01/20 Guide Glucose Meter) alendronate 70 mg tablet (Fosamax) 70 mg PO .once weekly #12 tabs 08/20/20 levothyroxine 100 mcg capsule 100 mcg PO DAILY #90 caps 07/11/21 cyclobenzaprine 10 mg tablet See Rx Instructions .Route 10/24/22 .COMPLEX #90 tabs Allergies Allergy/AdvReac Type Severity Reaction Status Date / Time codeine Allergy Severe throat Verified 11/14/21 13:34 swelling, itching oxycodone Allergy Severe throat Verified 11/14/21 13:34 swelling bupropion Allergy Mild rash Verified 11/14/21 13:34 ketorolac Allergy Mild hives Verified 11/14/21 13:34 Review of Systems 2 General: Reports: 10 or more systems reviewed and unremarkable except in HPI and below PFSH ED 2 PFSH: Medical History Endometriosis Hypokalemia Enlarged liver Elevated alkaline phosphatase level High gamma glutamyl transferase (GGT) Elevated serum gamma-glutamyl transferase level Hypothyroidism Gitelman syndrome Osteoporosis 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 Surgical History History of tonsillectomy History of thyroidectomy History of breast biopsy History of delivery Hx of removal of ovary History of cholecystectomy History of lung surgery Family History Mother Alcoholism Lung cancer Throat cancer Father Alcoholism Throat cancer Lung cancer Brother Alcoholism Family/Other Thyroid disease Cancer Paternal Uncle--brain Sister Breast cancer Sister Breast cancer Other Hypertension Denies family history of Diabetes CAD (coronary artery disease) Clotting disorder Hyperlipidemia Chronic kidney disease (CKD) Bleeding disorder Stroke Social History Substance/Drug Use: never Physical Exam 2 Const: COMMON NORMALS: no acute distress, average body habitus, patient oriented x3, no limitations, healthy appearing, alert and well nourished HENMT: COMMON NORMALS: normocephalic, atraumatic, hearing grossly normal bilaterally, external ears normal, Normal external nose present and moist oral mucous membranes HEAD & SCALP: normocephalic and atraumatic NOSE: Normal external nose present EXTERNAL EAR: Yes external ears normal Neck/C-Spine: COMMON NORMALS: full ROM, no lymphadenopathy, supple, no meningeal signs, no JVD and Thyroid normal THYROID: Thyroid normal Chest: COMMONS NORMALS: normal inspection of the chest and normal palpation of entire chest wall Resp: COMMON NORMALS: normal respiratory effort, No retractions, No use of accessory muscles and clear to auscultation bilaterally AUSCULTATION: clear to auscultation bilaterally Cardio: COMMON NORMALS: no JVD, regular rate, regular rhythm, S1 normal heart sound present, S2 normal heart sound present, No gallops present (Cardio), No clicks present (Cardio), No murmurs present (Cardio) and No rub (Cardio) R ATE: regular rate RHYTHM: regular rhythm HEART SOUNDS: S1 normal heart sound present and S2 normal heart sound present GI: COMMON NORMALS: Normal to inspection, nondistended, normoactive bowel sounds present, Soft to palpation, No hepatosplenomegaly present and no masses; negative for non-tender (Tender to palpate right lower quadrant suprapubic region) PALPATION: Yes Soft to palpation and Yes No hepatosplenomegaly present Neuro: COMMON NORMALS: patient oriented x3 SENSORIUM/ORIENTATION: Yes alert MENINGEAL SIGNS: Yes no meningeal signs Course 2 Vital Signs: Vital signs: Vital Signs Temperature 100.3 F H 09/18/24 18:58 Pulse Rate 72 09/18/24 19:08 Respiratory Rate 16 09/18/24 19:08 Blood Pressure 145/89 09/18/24 19:08 Pulse Oximetry 96 09/18/24 19:08 Oxygen Delivery Me thod Room Air 09/18/24 19:08 MDM - Abdominal Pain Medical Decision Making Patient on arrival had temperature 100.3, she given as milligrams Tylenol IV, lab work was obtained which is under other than being positive for COVID. Upon telling the patient these results patient was ready to go home. Patient not having any urinary tract like symptoms or feels comfortable and leaving before giving us to urine specimen. Patient be discharged. Medical Records I reviewed the patient's medical records. Lab Data I reviewed the patient's lab results. 09/18/24 18:56 09/18/24 19:19 Labs/Radiology: Laboratory Results WBC 5.52 10^3/uL (3.29-11.43) 09/18/24 18:56 RBC 4.23 10^6/uL (3.85-5.65) 09/18/24 18:56 Hgb 12.90 g/dL (11.27-16.99) 09/18/24 18:56 Hct 39.0 % (36-47) 09/18/24 18:56 MCV 92.2 fl (85-98) 09/18/24 18:56 MCH 30.5 pg (27-33) 09/18/24 18:56 MCHC 33.1 g/dL (30-55) 09/18/24 18:56 RDW 12.0 % (12.1-15.1) L 09/18/24 18:56 Plt Count 105 10^3/cmm (157-399) L 09/18/24 18:56 MPV 13.0 fL (7.4-10.4) H 09/18/24 18:56 Neut % (Auto) 71.1 % 09/18/24 18:56 Lymph % (Auto) 9.4 % 09/18/24 18:56 [place] % (Auto) 17.2 % 09/18/24 18:56 Eos % (Auto) 1.4 % 09/18/24 18:56 Baso % (Auto) 0.7 % 09/18/24 18:56 Neut # (Auto) 3.92 10^3/uL (1.8-7.7) 09/18/24 18:56 Lymph # (Auto) 0.5 10^3/uL (0.8-4.8) L 09/18/24 18:56 [place] # (Auto) 1.0 10^3/uL (0.2-0.9) H 09/18/24 18:56 Eos # (Auto) 0.1 10^3/uL (0.0-0.8) 09/18/24 18:56 Baso # (Auto) 0.0 10^3/uL (0.0-0.1) 09/18/24 18:56 Nucleated RBC % (auto) 0 % 09/18/24 18:56 Nucleated RBCs # 0.0 /100WBC 09/18/24 18:56 Sodium 136 mmol/L (136-145) 09/18/24 19:19 Potassium 3.8 mmol/L (3.5-5.1) 09/18/24 19:19 Chloride 102 mmol/L (98-107) 09/18/24 19:19 Carbon Dioxide 27 mmol/L (22-29) 09/18/24 19:19 Anion Gap 10.8 (5-19) 09/18/24 19:19 BUN 11 mg/dL (6-20) 09/18/24 19:19 Creatinine 0.6 mg/dL (0.5-0.9) 09/18/24 19:19 GFR Calculation 102.7 mL/min (90-130) 09/18/24 19:19 Glucose 97 mg/dL (65-115) 09/18/24 19:19 Calculated Osmolality 281 mOsm/kg (285-295) L 09/18/24 19:19 Calcium 9.2 mg/dL (8.5-10.5) 09/18/24 19:19 Total Bilirubin 0.3 mg/dL (0.15-1.2) 09/18/24 19:19 AST 24 U/L (0-32) 09/18/24 19:19 ALT 26 U/L (0-33) 09/18/24 19:19 Alkaline Phosphatase 113 U/L (35-105) H 09/18/24 19:19 Total Protein 6.2 g/dL (6.6-8.7) L 09/18/24 19:19 Albumin 4.1 g/dL (3.5-5.2) 09/18/24 19:19 Globulin 2.1 g/dL (1.3-4.6) 09/18/24 19:19 Lipase 31 U/L (13-60) 09/18/24 19:19 Coronavirus (PCR) Positive (Negative) A 09/18/24 19:21 Influenza A (PCR) Negative (Negative) 09/18/24 19:21 Influenza Type B (PCR) Negative (Negative) 09/18/24 19:21 RSV (PCR) Negative (Negative) 09/18/24 19:21 All radiology interpretation(s) finalized by discharge Discharge Plan Discharge Patient Disposition: Home Clinical Impression: COVID Condition: Stable Prescriptions: No Action spironolactone 25 mg tablet 25 mg PO BID (DME) blood-glucose meter [Accu-Chek Guide Glucose Meter] Misc See Rx Instructions .ROUTE .MEDSUPPLY Qty: 1 0RF Rx Instructions: As directed (DME) Accu-Chek Guide test strips Strip See Rx Instructions .ROUTE .MEDSUPPLY Qty: 30 0RF Rx Instructions: As directed Taltz Autoinjector 80 mg/mL auto-injector SUBCUT ropinirole 0.5 mg tablet 0.5 mg PO DAILY trazodone 150 mg tablet 150 mg PO DAILY atorvastatin 20 mg tablet 20 mg PO DAILY multivitamin Tablet 1 tab PO DAILY alendronate [Fosamax] 70 mg tablet 70 mg PO .once weekly Qty: 12 3RF levothyroxine 100 mcg capsule 100 mcg PO DAILY Qty: 90 3RF cyclobenzaprine 10 mg tablet See Rx Instructions .ROUTE .COMPLEX Qty: 90 0RF Dose Instruction: TAKE 1 TABLET BY MOUTH THREE TIMES DAILY Rx Instructions: TAKE 1 TABLET BY MOUTH THREE TIMES DAILY Discharge Orders: Discharge ED (Routine); Ordered 09/18/24 Ordered By: Golden Hendricks Referrals: Alba Cole FNP [Primary Care Provider] - 1 week Patient Instructions: COVID-19 (Coronavirus Disease 2019) (ED) Activity Restrictions/Additional Instructions: Thank you for choosing [facility] for your healthcare needs today. Please realize that you were seen in the emergency department and that we are providing you with an emergency medical screening exam and this may not be a complete and all exclusive of all testing and/or medical workup we may need to determine your element or severity of your illness. It is very important that you follow-up as instructed with your primary care provider or specialist for the additional evaluation and to discuss your medical treatment plan. You may return to the emergency department should you have concerns or if your condition changes or worsens in any way. Coding Level of Care Code ED Skatesman for Elan Carmona
[2024-09-18 19:43] LABS: Alanine Aminotransferase 26 U/L (0-33); Albumin Level 4.1 g/dL (3.5-5.2); Alkaline Phosphatase 113 U/L (35-105); Anion Gap 10.8 (5-19); Aspartate Amino Transferase 24 U/L (0-32); Blood Urea Nitrogen 11 mg/dL (6-20); Calcium 9.2 mg/dL (8.5-10.5); Carbon Dioxide 27 mmol/L (22-29); Chloride 102 mmol/L (98-107); Creatinine Clr Calc Pharmacy 80.7003; Globulin 2.1 g/dL (1.3-4.6); Glomerular Filtration Rate 102.7 mL/min (90-130); Glucose 97 mg/dL (65-115); Lipase 31 U/L (13-60); Osmolality Calculated 281 mOsm/kg (285-295); Potassium 3.8 mmol/L (3.5-5.1); Sodium 136 mmol/L (136-145); Total Bilirubin 0.3 mg/dL (0.15-1.2); Total Protein 6.2 g/dL (6.6-8.7)
[2024-09-18 20:06] LABS: Influenza A NEGATIVE (Negative); Influenza B NEGATIVE (Negative); Respiratory Syncytial Virus Ce NEGATIVE (Negative)
[2024-09-18] MEDS: acetaminophen 1,000 MG/100 ML PIGGYBACK 400 MG IV (20:06)
[2024-09-18 20:23] LABS: Covid PCR Positive (Negative)
--- NOTE | 2024-09-18 21:22 | PC.NURSE ---
Patient states she has had some coffee ground vomit and black/brown stools. Dr. Hendricks notified with no new orders.
--- NOTE | 2024-09-18 21:24 | PC.NURSE ---
IV removed with catheter intact.
== END 2024-09-18 21:24 | disposition home or self-care (01) ==
PROVIDERS: Emergency Provider Emergency Medicine; PCP Nurse Practitioner Family
DX: U07.1 COVID-19 (principal); Z11.52 Encounter for screening for COVID-19
CPT/HCPCS: 0241U; 71045; 80053; 83690; 85025; 99284; J0131